=== PATIENT | male | born 1990 | race Caucasian/White ===

== ENCOUNTER → 2016-08-10 | Outpatient (CLI) | payer OTHER ==
--- NOTE | 2016-08-10 16:08 | MR ---
EXAMINATION TYPE: MR knee RT wo con DATE OF EXAM: 08/10/2016 12:41 PM COMPARISON: None. HISTORY: Patient having right knee pain. TECHNIQUE: Multiplanar, multiecho imaging of the right knee is performed without IV contrast. FINDINGS:There is only a small amount of joint fluid. There is no significant chondromalacia. Both menisci appear normal. The anterior and posterior cruciate ligaments are intact. Both the medial and lateral collateral ligaments are intact. The iliotibial band inserts normally upo n Gerdy's tubercle. The popliteus muscle and tendon are normal. Both the quadriceps and patellar tendons are intact. There is no significant swelling in the Hoffa fa t space. No osseous lesion is seen. IMPRESSION: NORMAL MRI OF THE RIGHT KNEE.
== END ==
LOC: RADMRIMAIN 12:04
PROVIDERS: ATTEND Nurse Practitioner Family
DX: M25.561 Pain in right knee (principal)